=== PATIENT | male | born 1960 | race Caucasian/White ===

== ENCOUNTER 2019-05-28 13:40 | Inpatient (IN) | payer MEDICAID ==
[~2019-05-28] VITALS: Ht 165.1 cm; Wt 68.0 kg
[2019-05-28 13:46] VITALS: BP 175/79
--- NOTE | 2019-05-28 13:55 | NUR ---
PT AMB TO ER BED 5
--- NOTE | 2019-05-28 14:15 | NUR ---
C/O ABD DISTENTION, PENILE AND TESTICULAR SWELLING X 1 MONTH W/ +BLE SWELLING-PITTING EDEMA 2+. BOWEL SOUNDS HYPOACTIVE IN QUADRANTS, LARGE AND ROUND ABDOMEN. PATIENT DENIES ANY PAIN WITH USING BATHROOM, NO N/V/D. PATIENT STATES HE WAS SEEN AT [facility] X 1 MONTH AGO FOR HEART ATTACK AND PULMONARY EDEMA. PATIENT DENIES ANY STENT PLACEMENT. PATIENT DENIES ANY CP, NO SOB, NO DIAPHORESIS OR DIZZINESS. BP 166/91 AT THIS TIME. AA0X4. BED IS DOWN, LOCKED,BED RAIL X 1, ERMD TO SEE PT. Addendum: 05/28/19 at 1734 by [email or web address] 3+ EDEMA
--- NOTE | 2019-05-28 14:20 | NUR ---
LABS DRAWN BEDSIDE
--- NOTE | 2019-05-28 15:30 | NUR ---
DR DEWITT AT BEDSIDE
[2019-05-28] MEDS ORDERED: SODIUM CHLORIDE FLUSH 10 ML SYR IVF STA (15:57)
[2019-05-28] MEDS ORDERED: FUROSEMIDE 40 MG/4 ML VIAL IVP ONE (16:00)
--- NOTE | 2019-05-28 16:39 | NUR ---
PT SLEEPING IN BED. RR EVEN AND UNLABORED
[2019-05-28 16:42] LABS: BASOPHILS % (AUTO) 0.4 % (0.0-2.0); EOSINOPHILS # (AUTO) 0.3 K/uL (0-0.4); EOSINOPHILS % (AUTO) 4.9 % (0.0-4.0); HEMATOCRIT 30.5 % (36-52); HEMOGLOBIN 10.5 g/dL (12.0-18.0); LYMPHOCYTES % (AUTO) 16.7 % (20.5-51.1); MEAN CORPUSCULAR HEMOGLOBIN 32 pg (27-31); MEAN CORPUSCULAR HGB CONC 34 g/dL (33-37); MEAN CORPUSCULAR VOLUME 92.9 fL (80-94); MONOCYTES # (AUTO) 0.4 K/uL (0.8-1.0); NEUTROPHILS # (AUTO) 4.4 K/uL (1.8-7.7); PLATELET COUNT (AUTO) 257 K/uL (140-450); RED BLOOD CELL COUNT(AUTO) 3.28 MIL/uL (4.20-6.10); RED CELL DISTRIBUTION WIDTH 15.9 % (11.6-13.7); WHITE BLOOD COUNT (AUTO) 6.2 K/uL (4.8-10.8)
[2019-05-28 16:57] LABS: ALBUMIN 2.3 g/dL (3.4-5.0); ANION GAP 13.8 (8-16); CARBON DIOXIDE 27.8 mmol/L (21-32); CREATININE 1.4 mg/dL (0.7-1.3); TOTAL BILIRUBIN 0.4 mg/dL (0.0-1.0)
[2019-05-28 16:58] LABS: POTASSIUM 2.6 mmol/L (3.5-5.1)
[2019-05-28] MEDS ORDERED: POTASSIUM CHLORIDE 10 MEQ TABER PO ONE (17:05)
[2019-05-28] MEDS ORDERED: KCL 20 MEQ/WATER INJ PREMIX 100 ML IV ONE (17:05)
[2019-05-28] MEDS ORDERED: FURO-570 PO (17:09)
[2019-05-28] MEDS ORDERED: AMLO10TA PO (17:09)
[2019-05-28] MEDS ORDERED: OMEP20TC12 PO (17:09)
[2019-05-28] MEDS ORDERED: ATOR40TA PO (17:09)
[2019-05-28] MEDS ORDERED: ASPI-1677 PO (17:09)
[2019-05-28] MEDS ORDERED: LISI10TA11 PO (17:09)
[2019-05-28] MEDS ORDERED: NACL 0.9% 1,000 ML IV SCH (17:23)
[2019-05-28] MEDS ORDERED: ONDANSETRON 4 MG/2 ML VIAL IM/IVP PRN (17:25)
[2019-05-28] MEDS ORDERED: DOCUSATE SODIUM 100 MG GELCAP PO PRN (17:25)
[2019-05-28] MEDS ORDERED: MAG SULF 2000 MG/WATER PREMIX 50 ML IV ONE (17:40)
--- NOTE | 2019-05-28 17:55 | NUR ---
RECEIVED PT FROM ED NURSE MO. PT IS AWAKE AND ALERT, NO S/S OF ACUTE DISTRESS OR SOB. NO C/O CHEST PAIN REPORTED. PT IS AMBULATORY AND ABLE TO MAKE NEEDS KNOWN. IV CURRENTLY INFUSING K RIDER AT 40 ML/HR. IV SITE IS IN THE L AC 20 G. SKIN IS INTACT, ALTHOUGH OLD SMALL SCABS ARE NOTED ON BOTH LE'S. TELEMETRY APPLIED. CALL LIGHT GIVEN WITHIN REACH. PT IS REQUESTING TO TAKE A SHOWER.
--- NOTE | 2019-05-28 18:00 | NUR ---
VS UPON ADMISSION: BP 180/83, HR 62, O2 95, TEMP 97.3, RR 20
--- NOTE | 2019-05-28 18:10 | NUR ---
PT TAKING A SHOWER
[2019-05-28 18:15] LABS: PROTHROMBIN TIME 9.6 secs (10.8-13.4)
[2019-05-28 18:20] LABS: APPEARANCE,URINE CLOUDY (CLEAR); COLOR,URINE YELLOW (YELLOW)
[2019-05-28 18:21] LABS: PH,URINE 6.5 (5.0-9.0)
[2019-05-28 18:22] LABS: BLOOD, URINE 3+ (NEGATIVE); UGLUCOSE NEGATIVE (NEGATIVE)
[2019-05-28 18:23] LABS: BARBITURATE, URINE NEG. ng/ml (NEG <=200); BENZODIAZEPINE, URINE NEG. ng/mL (NEG <=200); BILIRUBIN,URINE 1+ (NEGATIVE); CANNABINOID, URINE NEG. ng/mL (NEG <=50); COCAINE, URINE NEG. ng/mL (NEG <=300); LEUKOCYTE ESTERASE ,URINE NEGATIVE (NEGATIVE); NITRITE, URINE NEGATIVE (NEGATIVE); OPIATE, URINE NEG. ng/mL (NEG <=2000); PHENCYCLIDINE SCREEN,URINE NEG. ng/mL (NEG <=25)
[2019-05-28 18:27] LABS: PHOSPHORUS 4.4 mg/dL (2.5-4.9); THYROID STIMULATING HORMONE 3.04 uIU/mL (0.34-3.74)
[2019-05-28 18:40] LABS: RBC,URINE 80-100 /HPF (0-5)
[2019-05-28 18:41] LABS: WBC,URINE NONE SEEN /HPF (0-5)
--- NOTE | 2019-05-28 18:46 | NUR ---
DR KNOX NOTIFIED OF PT'S BP 180/83
--- NOTE | 2019-05-28 19:20 | NUR ---
PT ENDORSED TO HEALTH SCREENER NURSE IN STABLE CONDITION
--- NOTE | 2019-05-28 19:26 | NUR ---
Patient will be admitted to care of CHAPMAN. Admited to TELE. Will go to room 111B. Belongings list completed. Report to DARRIAN HUTCHISON. ESTELLA RUNNING UPON ADMIT
[2019-05-28 19:30] VITALS: BP 147/87
--- NOTE | 2019-05-28 19:30 | NUR ---
RECEIVED TELE PT FROM DAY NURSE. PT IS AWAKE AND ALERT, NO S/S OF ACUTE DISTRESS OR SOB. NO C/O CHEST PAIN REPORTED. BUT PT IS COMPLAINING OF ABDOMINAL PAIN. BOWEL SOUNDS ARE PRESENT AND ACTIVE. PT IS AMBULATORY AND ABLE TO MAKE NEEDS KNOWN. IV SITE IS IN THE L AC 20 G. K RIDER STILL RUNNING AT 40ML/HR. SKIN IS INTACT WITH OLD SCABS ON BOTH LOWER LEGS. SLIGHT SWELLING ON LOWER LEGS. URINAL AT BEDSIDE. CALL LIGHT WITHIN REACH. BED ON LOW POSITION. WILL CONTINUE TO MONITOR FOR CHANGES IN CONDITION.
--- NOTE | 2019-05-28 21:30 | NUR ---
PATIENT IS AWAKE, ALERT AND ORIENTED X3, REQUESTED JUICE AND MILK, BED ON LOW POSITION, URINAL AT BEDSIDE, CALL LIGHT WITHIN REACH, WILL CONTINUE TO MONITOR.
[2019-05-28 22:12] LABS: ANION GAP 11.5 (8-16); CARBON DIOXIDE 28.8 mmol/L (21-32); CREATININE 1.3 mg/dL (0.7-1.3); POTASSIUM 3.3 mmol/L (3.5-5.1)
[2019-05-28] MEDS: ACETAMINOPHEN 325 MG TAB PO PRN (22:45)
[2019-05-29] VITALS (8 sets, daily range): BP systolic 148–188; BP diastolic 78–99
--- NOTE | 2019-05-29 00:54 | NUR ---
HYDRALAZINE 10 MG IV PUSH GIVEN ORDERED FOR BP 188/87. WILL REASSESS BP IN AN HOUR.
[2019-05-29] MEDS ORDERED: hydrALAZINE 20 MG/ML VIAL IVP SCH ×2 (01:00→09:00)
--- NOTE | 2019-05-29 01:54 | NUR ---
REASSESSED PATIENTS BP PER AFTER GIVING HYDRALAZINE, BP WENT DOWN FROM 188/89 TO 165/80 AND HR 66, WILL CONTINUE TO MONITOR.
--- NOTE | 2019-05-29 03:00 | NUR ---
PT PT IS ASLEEP. NO S/S OF ANY DISCOMFORT NOTED.
--- NOTE | 2019-05-29 04:15 | NUR ---
PATIENT REQUESTED SOME COFFEE AFTER VITAL SIGNS WERE TAKEN, ABLE TO VERBALIZE NEEDS, NO SIGNS OF DISTRESS NOTED, WILL CONTINUE TO MONITOR.
[2019-05-29] MEDS ORDERED: METOPROLOL 25 MG TAB PO SCH ×3 (05:00→21:00)
--- NOTE | 2019-05-29 05:04 | NUR ---
BLOOD PRESSURE 184/99 . LOPRESSOR 25 MG PO GIVEN ORDERED. WILL CONTINUE TO MONITOR.
--- NOTE | 2019-05-29 06:00 | NUR ---
PT OWN MEDICATIONS SEND TO PHARMACY FOR NO FAMILY AND NO PLACE TO BRING HOME. PT IS HOMELESS . PLACED IN INDICATED BAG. PT AWARE ABOUT THIS PROCEDURE.
[2019-05-29] MEDS: PANTOPRAZOLE 40 MG TABEC PO SCH (06:15)
--- NOTE | 2019-05-29 06:29 | NUR ---
BLOOD PRESSURE STILL ELEVATED 180/85 AFTER THE LOPRESSOR 25 MG PO GIVEN EARLIER. DR. RENEE MADE AWARE. SHE SAID TO GIVE BOTH NORVASC AND LISINOPRIL DOSE FOR AM NOW.
[2019-05-29] MEDS: amLODIPine 5 MG TAB PO SCH (06:34)
[2019-05-29 06:47] LABS: CHOL/HDL RATIO 8.3 (1-4.5)
--- NOTE | 2019-05-29 07:22 | NUR ---
ENDORSED PATIENT TO DAY NURSE FOR CONTINUITY OF CARE. PATIENT IS IN STABLE CONDITION.
--- NOTE | 2019-05-29 07:24 | NUR ---
RECEIVED BEDSIDE REPORT FROM REGISTRATION COORDINATOR NURSE FOR CONTINUITY OF CARE. PATIENT IS RESTING ON BED AT THIS TIME. AROUSABLE TO VOICE. PATIENT IS AAOX4. EVEN AND UNLABORED CHEST RISES ON RA NOTED. DENIED PAIN AND SOB. NO SIGNS OF DISTRESS NOTED. IV ON LAC 20G, CLEAN AND INTACT, SL. SKIN CLEAN AND DRY, SCABS ON BILATERAL LOWER LEGS NOTED. BLE EXTREMITY WITH 2+ PITTING EDEMA. PATIENT IS ABLE TO AMBULATE WITH STEADY GAIT. DISCUSSED PLAN OF CARE WITH PATIENT AND PATIENT VERBALIZED OK. TELE MONITOR ATTACHED. BED IN LOW POSITION AND CALL LIGHT WITHIN REACH. INSTRUCTED PATIENT TO USE THE CALL LIGHT FOR ANY ASSISTANCE AND PATIENT VERBALIZED OK.
--- NOTE | 2019-05-29 07:45 | NUR ---
SWISS TYPE SCREW MACHINE OPERATOR IS BY BEDSIDE DOING ABDOMINAL ULTRASOUND. NO SIGNS OF DISTRESS NOTED. TELE MONITOR ATTACHED.
--- NOTE | 2019-05-29 08:20 | NUR ---
CHECKED VITAL SIGNS AND BP 182/97 PULSE 66, NOTIFIED DR RENEE AND PER DR RENEE, ADMINISTER THE SCHEDULED DOSE FUROSEMIDE AND SHE WILL INPUT NEW ORDER.
[2019-05-29] MEDS: ECOTRIN 81 MG TABEC PO SCH (08:29)
[2019-05-29] MEDS ORDERED: LISINOPRIL 10 MG TAB PO SCH ×2 (08:33→09:00)
--- NOTE | 2019-05-29 08:34 | NUR ---
ADMINISTERED MEDS PER MD ORDER, PATIENT TOLERATED WELL. MEDS EDUCATION PROVIDED TO PATIENT AND PATIENT VERBALIZED UNDERSTANDING. INSTRUCTED PATIENT TO CHANGE POSITION SLOWLY AND TO BE CAREFUL WHEN GET OUT OF BED , PATIENT SAID OK. PATIENT DENIED PAIN AND SOB. PATIENT IS RESTING ON BED AT THIS TIME. NO SIGNS OF DISTRESS NOTED. TELE MONITOR ATTACHED. SAFETY MEASURES IN PLACE. BED IN LOW POSITION AND ALL LIGHT WITHIN REACH. INSTRUCTED PATIENT TO USE THE CALL LIGHT FOR ANY ASSISTANCE AND PATIENT WAS AWARE.
--- NOTE | 2019-05-29 08:43 | NUR ---
PATIENT HAS BEEN SCREENED AND CATEGORIZED MODERATE NUTRITION RISK. PATIENT WILL BE SEEN WITHIN 3-5 DAYS OF ADMISSION. 05/31/19 06/02/[address]
--- NOTE | 2019-05-29 08:46 | NUR ---
DR ARMSTRONG AND DR RENEE ARE TALKING TO PATIENT BY BEDSIDE. NO SIGNS OF DISTRESS NOTED. TELE MONITOR ATTACHED. SAFETY MEASURES IN PLACE.
--- NOTE | 2019-05-29 08:58 | NUR ---
PER DR RENEE, ADMINISTER THE LISINOPRIL WELL AND REASSESS BP AROUND 0930. ADMINISTERED MED PER MD ORDER, PATIENT TOLERATED WELL. MED EDUCATION PROVIDED TO PATIENT AND PATIENT SAID OK. PATIENT IS RESTING ON BED AT THIS TIME. DENIED PAIN AND SOB. NO SIGNS OF DISTRESS NOTED. TELE MONITOR ATTACHED. SAFETY MEASURES IN PLACE. BED IN LOW POSITION AND CALL LIGHT WITHIN REACH. INSTRUCTED PATIENT TO USE THE CALL LIGHT FOR ANY ASSISTANCE AND PATIENT WAS AWARE.
[2019-05-29] MEDS ORDERED: FUROSEMIDE 40 MG TAB PO SCH (09:00)
[2019-05-29 09:29] LABS: BASOPHILS % (AUTO) 0.7 % (0.0-2.0); EOSINOPHILS # (AUTO) 0.5 K/uL (0-0.4); EOSINOPHILS % (AUTO) 8.3 % (0.0-4.0); HEMATOCRIT 29.2 % (36-52); HEMOGLOBIN 9.8 g/dL (12.0-18.0); LYMPHOCYTES # (AUTO) 1.3 K/uL (2.0-11.5); LYMPHOCYTES % (AUTO) 23.5 % (20.5-51.1); MEAN CORPUSCULAR HEMOGLOBIN 31 pg (27-31); MEAN CORPUSCULAR HGB CONC 34 g/dL (33-37); MEAN CORPUSCULAR VOLUME 93.2 fL (80-94); MONOCYTES # (AUTO) 0.4 K/uL (0.8-1.0); MONOCYTES % (AUTO) 6.6 % (1.7-9.3); NEUTROPHILS # (AUTO) 3.4 K/uL (1.8-7.7); NEUTROPHILS % (AUTO) 60.9 % (42.2-75.2); PLATELET COUNT (AUTO) 169 K/uL (140-450); RED BLOOD CELL COUNT(AUTO) 3.13 MIL/uL (4.20-6.10); WHITE BLOOD COUNT (AUTO) 5.6 K/uL (4.8-10.8)
--- NOTE | 2019-05-29 09:35 | NUR ---
REASSESSED PATIENT'S BP AND RECEIVED 152/70 PULSE 63. PATIENT DENIED PAIN AND DIZZINESS. PATIENT IS RESTING ON BED AT THIS TIME. NO SIGNS OF DISTRESS NOTED. TELE MONITOR ATTACHED. SAFETY MEASURES IN PLACE. BE IN LOW POSITION AND CALL LIGHT WITHIN REACH. INSTRUCTED PATIENT TO USE THE CALL LIGHT FOR ANY ASSISTANCE AND PATIENT WAS AWARE.
[2019-05-29 10:03] LABS: CREATININE 1.3 mg/dL (0.7-1.3)
[2019-05-29 10:07] LABS: MAGNESIUM 1.9 mg/dL (1.8-2.4); PHOSPHORUS 4.5 mg/dL (2.5-4.9)
--- NOTE | 2019-05-29 10:20 | NUR ---
PATIENT HAS ONE SMALL SOLID BM, BROWN. COLLECTED STOOL OCCULT BLOOD AND DELIVERED TO LAB. PATIENT IS RESTING ON BED AT THIS TIME. NO SIGNS OF DISTRESS NOTED. TELE MONITOR ATTACHED. BED IN LOW POSITION AND CALL LIGHT WITHIN REACH. INSTRUCTED PATIENT TO USE THE CALL LIGHT FOR ANY ASSISTANCE AND PATIENT SAID OK.
--- NOTE | 2019-05-29 10:50 | NUR ---
NOTIFIED DR RENEE AND DR WEIR THAT PATIENT'S POTASSIUM IS 3 FROM AM LAB. PER DR WEIR, THEY WILL PUT IN AN ORDER FOR IT.
--- NOTE | 2019-05-29 11:45 | NUR ---
PATIENT IS RESTING ON BED AT THIS TIME, AROUSABLE TO VOICE. EVEN AND UNLABORED CHEST RISES ON RA NOTED. FLACC 0. NO SIGNS OF DISTRESS NOTED. SAFETY MEASURES IN PLACE. BED IN LOW POSITION AND CALL LIGHT WITHIN REACH. TELE MONITOR ATTACHED.
--- NOTE | 2019-05-29 13:29 | NUR ---
PATIENT AWAKE AND IN ECHOCARDIOGRAM. ENVIRONMENTAL MONITORING SPECIALIST BY BEDSIDE. NO SIGNS OF DISTRESS NOTED. TELE MONITOR ATTACHED. SAFETY MEASURES IN PLACE. BED IN LOW POSITION AND CALL LIGHT WITHIN REACH.
[2019-05-29] MEDS ORDERED: MAGNESIUM OXIDE 400 MG TAB PO SCH (15:00)
[2019-05-29] MEDS ORDERED: POTASSIUM CHLORIDE 40 MEQ, LIDOCAINE MPF 1% - 5 mL VIAL 25 MG in NACL 0.9% 250 ML IV SCH (15:00)
--- NOTE | 2019-05-29 15:02 | NUR ---
ADMINISTERED MEDS PER MD ORDER, MEDS EDUCATION PROVIDED TO PATIENT AND PATIENT VERBALIZED UNDERSTANDING. PATIENT IS RESTING ON BED AT THIS TIME. NO SIGNS OF DISTRESS NOTED. SAFETY MEASURES IN PLACE. BED IN LOW POSITION AND CALL LIGHT WITHIN REACH. INSTRUCTED PATIENT TO USE THE CALL LIGHT FOR ANY ASSISTANCE AND PATIENT WAS AWARE.
[2019-05-29] MEDS: ACETAMINOPHEN 325 MG TAB PO PRN (15:24)
--- NOTE | 2019-05-29 15:24 | NUR ---
PATIENT COMPLAINED HE HAS 2/10 HEADACHE, ADMINISTERED ACETAMINOPHEN PER MD ORDER, PATIENT TOLERATED WELL. PATIENT SAID " I WANT TO TAKE A NAP NOW." TELE MONITOR ATTACHED. SAFETY MEASURES IN PLACE. BED IN LOW POSITION AND CALL LIGHT WITHIN REACH. INSTRUCTED PATIENT TO USE THE CALL LIGHT FOR ANY ASSISTANCE AND PATIENT SAID OK.
[2019-05-29] MEDS: hydrALAZINE 20 MG/ML VIAL IVP PRN (16:13)
--- NOTE | 2019-05-29 16:13 | NUR ---
CHECKED VITAL SIGNS AND BP WAS 179/87 PULSE 70, ADMINISTERED PRN HYDRALAZINE PER MD ORDER FOR BP SYSTOLIC OVER 160, PATIENT TOLERATED WELL . MED EDUCATION PROVIDED TO PATIENT AND PATIENT SAID OK. PATIENT IS RESTING ON BED. DENIED PAIN, DIZZINESS AND SOB. NO SIGNS OF DISTRESS NOTED. TELE MONITOR ATTACHED. SAFETY MEASURES IN PLACE. BED IN LOW POSITION AND CALL LIGHT WITHIN REACH. INSTRUCTED PATIENT TO USE THE CALL LIGHT FOR ANY ASSISTANCE AND PATIENT WAS AWARE.
[2019-05-29] MEDS ORDERED: APAP/BUTAL/CAFF 325/50/40 MG 1 TAB PO PRN (16:40)
--- NOTE | 2019-05-29 17:17 | NUR ---
PATIENT COMPLAINED THAT HE HAS BAD HEADACHE. PER DR RENEE, ADMINISTERED FLORICET. ADMINISTERED MED PER MD ORDER, PATIENT TOLERATED WELL. MED EDUCATION PROVIDED TO PATIENT AND PATIENT VERBALIZED OK. PATIENT IS RESTING ON BED AT THIS TIME. TELE MONITOR ATTACHED. SAFETY MEASURES IN PLACE. BED IN LOW POSITION AND CALL LIGHT WITHIN REACH. INSTRUCTED PATIENT TO USE THE CALL LIGHT FOR ANY ASSISTANCE AND PATIENT WAS AWARE.
--- NOTE | 2019-05-29 18:35 | NUR ---
EXPLAINED TO PATIENT THAT HE HAS ABDOMINAL US TOMORROW AND HE HAS TO BE NPO FOR 6 HOURS. PATIENT WAS AWARE AND VERBALIZED OK. NPO SIGN POSTED. PATIENT IS RESTING ON BED. NO SIGNS OF DISTRESS NOTED. SAFETY MEASURES IN PLACE. BED IN LOW POSITION AND CALL LIGHT WITHIN REACH. TELE MONITOR ATTACHED. INSTRUCTED PATIENT TO USE THE CALL LIGHT FOR ANY ASSISTANCE AND PATIENT VERBALIZED UNDERSTANDING.
--- NOTE | 2019-05-29 19:30 | NUR ---
ENDORSED PATIENT AT BEDSIDE TO RADIO TELEVISION ANNOUNCER NURSE FOR CONTINUITY OF CARE. PATIENT IS RESTING ON BED. EVEN AND UNLABORED CHEST RISES ON RA NOTED. NO SIGNS OF DISTRESS NOTED. PATIENT IS IN STABLE CONDITION. TELE MONITOR ATTACHED. SAFETY MEASURES IN PLACE. BED IN LOW POSITION AND CALL LIGHT WITHIN REACH.
--- NOTE | 2019-05-29 19:32 | NUR ---
RECEIVED PT IN STABLE CONDITION FROM AM NURSE. AWAKE,ALERT AND ORIENTED X4. ON TELE MONITOR -SR. WITH NO ACUTE DISTRESS NOTED. WITH OCCASIONAL NON PRODUCTIVE COUGH. IV ACCESS ON LT AC G#20 ,CLEAR AND PATENT. SKIN HAS SOME OLD SCABS WHICH PT SAID FROM SCRATCHING. ABDOMEN DISTENDED, TENDER. NO CO ANY PAIN NOTED AT THIS TIME. BED ON LOEST POSITION. FREQ ROUNDS NEEDED. SIDE RAILS UP X2. CALL LIGHT AND URINAL PLACED WITHIN EASY REACH. WILL CONTINUE TO MONITOR.
[2019-05-29] MEDS: FUROSEMIDE 40 MG/4 ML VIAL IVP SCH (20:17)
[2019-05-29] MEDS: ATORVASTATIN 20 MG TAB PO SCH (20:17)
[2019-05-29] MEDS: METOPROLOL 25 MG TAB PO SCH (20:18)
[2019-05-29] MEDS ORDERED: FUROSEMIDE 20 MG/2 ML VIAL IVP SCH (21:00)
[2019-05-29] MEDS ORDERED: LISINOPRIL 20 MG TAB PO SCH (21:00)
[2019-05-29] MEDS ORDERED: hydrALAZINE 25 MG TAB PO SCH (21:00)
--- NOTE | 2019-05-29 21:00 | NUR ---
ABLE TO TOLERATE ALL HS DUE MEDS. BP 156/88. NO C/O ANY PAIN AT THIS TIME.
--- NOTE | 2019-05-29 23:00 | NUR ---
MADE ROUNDS. PT ASLEEP.. NO S/S OF ANT DISCOMFORT NOTED.
[2019-05-30] VITALS (9 sets, daily range): BP systolic 150–180; BP diastolic 75–98
[2019-05-30] MEDS: ACETAMINOPHEN 325 MG TAB PO PRN ×4 (00:18→21:03)
[2019-05-30] MEDS: hydrALAZINE 20 MG/ML VIAL IVP PRN (00:19)
--- NOTE | 2019-05-30 00:19 | NUR ---
BLOOD PRESSURE ELEVATED 179/98, HR-74 APRESOLINE 10 MG IVP GIVEN ORDERED. ALSO PT C/O H/A AMD REQUESTED FOR TYLENOL. WILL CONTINUE TO MONITOR,REASSESS BP AFTER AN HOUR.
--- NOTE | 2019-05-30 01:19 | NUR ---
AT THIS TIME NO MORE C/O H/A AND BP RECHECKED 158/82, HR-74. WILL CONTINUE TO MONITOR.
--- NOTE | 2019-05-30 03:00 | NUR ---
MADE ROUNDS. PT ASLEEP. NO S/S OF ANY DISTRESS NOTED.
[2019-05-30] MEDS ORDERED: hydrALAZINE 20 MG/ML VIAL IVP ONE (04:40)
--- NOTE | 2019-05-30 04:50 | NUR ---
BP ELEVATED AGAIN . DR. KUMAR MADE AWARE FOR THE APRESOLINE 10 MG IVP PRN NOT DUE YET. ORDERED FOR X1 . GIVEN. WILL REASSESS AFTER AN HOUR. . Addendum: 05/30/19 at 0502 by Katie Ayala RN BP ABOVE 180/92, HR-71
--- NOTE | 2019-05-30 05:50 | NUR ---
LATEST BP TAKEN AT THIS TIME 164/86, HR-83. NO C/O PAIN NOTED .
[2019-05-30] MEDS: PANTOPRAZOLE 40 MG TABEC PO SCH (06:30)
--- NOTE | 2019-05-30 06:30 | NUR ---
KEPT PT NPO FOR US ABDOMEN.
[2019-05-30 06:46] LABS: BASOPHILS # (AUTO) 0.1 K/uL (0.00-0.22); BASOPHILS % (AUTO) 0.8 % (0.0-2.0); EOSINOPHILS # (AUTO) 0.5 K/uL (0-0.4); EOSINOPHILS % (AUTO) 7.7 % (0.0-4.0); HEMATOCRIT 29.3 % (36-52); HEMOGLOBIN 9.8 g/dL (12.0-18.0); LYMPHOCYTES # (AUTO) 1.9 K/uL (2.0-11.5); LYMPHOCYTES % (AUTO) 29.5 % (20.5-51.1); MEAN CORPUSCULAR HEMOGLOBIN 31 pg (27-31); MEAN CORPUSCULAR HGB CONC 33 g/dL (33-37); MEAN CORPUSCULAR VOLUME 94.2 fL (80-94); MONOCYTES # (AUTO) 0.5 K/uL (0.8-1.0); MONOCYTES % (AUTO) 7.9 % (1.7-9.3); NEUTROPHILS # (AUTO) 3.5 K/uL (1.8-7.7); NEUTROPHILS % (AUTO) 54.1 % (42.2-75.2); PLATELET COUNT (AUTO) 220 K/uL (140-450); RED BLOOD CELL COUNT(AUTO) 3.12 MIL/uL (4.20-6.10); WHITE BLOOD COUNT (AUTO) 6.5 K/uL (4.8-10.8)
[2019-05-30 07:12] LABS: CARBON DIOXIDE 24.4 mmol/L (21-32); CREATININE 1.4 mg/dL (0.7-1.3); POTASSIUM 3.4 mmol/L (3.5-5.1)
[2019-05-30 07:19] LABS: MAGNESIUM 1.9 mg/dL (1.8-2.4); PHOSPHORUS 4.4 mg/dL (2.5-4.9)
--- NOTE | 2019-05-30 07:20 | NUR ---
ENDORSED PT TO AM NURSE IN STABLE CONDITION.
--- NOTE | 2019-05-30 07:22 | NUR ---
RECEIVED BEDSIDE REPORT FROM ASSEMBLER WIRE MESH GATE NURSE FOR CONTINUITY OF CARE. PATIENT AWAKE AND RESTING ON BED AT THIS TIME. PATIENT IS AAOX4. RESPIRATION EVEN AND UNLABORED ON RA. DENIED PAIN, DIZZINESS AND SOB AT THIS TIME. NO SIGNS OF DISTRESS NOTED. IV ON LAC 20G, CLEAN AND INTACT, SL.SCABS ON BILATERAL LOWER LEGS, OTHERWISE SKIN CLEAN AND DRY. PATIENT IS ABLE TO AMBULATE AND CONTINENT. DISCUSSED PLAN OF CARE WITH PATIENT AND PATIENT SAID OK. TELE MONITOR ATTACHED. SAFETY MEASURES IN PLACE. BED IN LOW POSITION AND CALL LIGHT WITHIN REACH. INSTRUCTED PATIENT TO USE THE CALL LIGHT FOR ANY ASSISTANCE AND PATIENT VERBALIZED UNDERSTANDING.
--- NOTE | 2019-05-30 07:56 | NUR ---
DR ARMSTRONG IS TALKING TO PATIENT AT BEDSIDE. NO SIGNS OF DISTRESS NOTED. TELE MONITOR IN PLACE. SAFETY MEASURES IN PLACE.
[2019-05-30] MEDS ORDERED: LISINOPRIL 10 MG TAB PO SCH (09:00)
[2019-05-30] MEDS ORDERED: LISINOPRIL 20 MG TAB PO SCH (09:12)
[2019-05-30] MEDS: ECOTRIN 81 MG TABEC PO SCH (09:50)
[2019-05-30] MEDS: POTASSIUM CHLORIDE 10 MEQ TABER PO SCH (09:50)
[2019-05-30] MEDS: METOPROLOL 25 MG TAB PO SCH ×2 (09:50→20:53)
[2019-05-30] MEDS: amLODIPine 5 MG TAB PO SCH (09:51)
[2019-05-30] MEDS: FUROSEMIDE 40 MG/4 ML VIAL IVP SCH ×2 (09:51→20:51)
--- NOTE | 2019-05-30 09:51 | NUR ---
ADMINISTERED MEDS PER MD ORDER, PATIENT TOLERATED WELL. MEDS EDUCATION PROVIDED TO PATIENT AT BEDSIDE AND ANSWERED ALL PATIENT'S QUESTIONS, PATIENT VERBALIZED UNDERSTANDING. PATIENT IS RESTING ON BED AT THIS TIME. TELE MONITOR ATTACHED. DENIED PAIN, DIZZINESS AND SOB. NO SIGNS OF DISTRESS NOTED. SAFETY MEASURES IN PLACE. BED IN LOW POSITION AND CALL LIGHT WITHIN REACH. INSTRUCTED PATIENT TO USE THE CALL LIGHT FOR ANY ASSISTANCE AND PATIENT WAS AWARE.
[2019-05-30] MEDS ORDERED: POTASSIUM CHLORIDE 10 MEQ TABER PO SCH (11:30)
[2019-05-30] MEDS: LACTULOSE 20 GM/30 ML UDC PO SCH ×2 (11:33→20:52)
--- NOTE | 2019-05-30 11:33 | NUR ---
ADMINISTERED MEDS PER MD ORDER, PATIENT TOLERATED WELL. MEDS EDUCATION PROVIDED TO PATIENT AND PATIENT VERBALIZED UNDERSTANDING. PATIENT IS RESTING ON BED WITH HOB ELEVATED 30 DEGREE. PATIENT DENIED PAIN, DIZZINESS AND SOB. NO SIGNS OF DISTRESS NOTED. TELE MONITOR ATTACHED. SAFETY MEASURES IN PLACE. BED IN LOW POSITION AND CALL LIGHT WITHIN REACH. INSTRUCTED PATIENT TO USE THE CALL LIGHT FOR ANY ASSISTANCE AND PATIENT SAID OK.
[2019-05-30 12:16] LABS: FOLIC ACID 8.8 ng/mL (>3.0)
[2019-05-30] MEDS: hydrALAZINE 25 MG TAB PO SCH ×2 (13:18→16:38)
--- NOTE | 2019-05-30 13:18 | NUR ---
ADMINISTERED MED PER MD ORDER, PATIENT TOLERATED WELL. MED EDUCATION PROVIDED TO PATIENT AND PATIENT VERBALIZED UNDERSTANDING. PATIENT IS RESTING ON BED WITH HOB ELEVATED 30 DEGREE. DENIED PAIN, SOB AND DIZZINESS. NO SIGNS OF DISTRESS NOTED. TELE MONITOR ATTACHED. SAFETY MEASURES IN PLACE. BED IN LOW POSITION AND CALL LIGHT WITHIN REACH. INSTRUCTED PATIENT TO USE THE CALL LIGHT FOR ANY ASSISTANCE AND PATIENT WAS AWARE.
--- NOTE | 2019-05-30 15:20 | NUR ---
PATIENT IS RESTING ON BED COMFORTABLY. AROUSABLE TO VOICE. DENIED PAIN, DIZZINESS, AND SOB. NO SIGNS OF DISTRESS NOTED. TELE MONITOR ATTACHED. SAFETY MEASURES IN PLACE. BED IN LOW POSITION AND CALL LIGHT WITHIN REACH. INSTRUCTED PATIENT TO USE THE CALL LIGHT FOR ANY ASSISTANCE AND PATIENT SAID OK.
--- NOTE | 2019-05-30 16:38 | NUR ---
CHECKED PT'S BP AND RECEIVED 170/95 PULSE 68, ADMINISTERED SCHEDULED HYDRALAZINE 25MG PER MD ORDER, PATIENT TOLERATED WELL. PATIENT IS RESTING ON BED AT THIS TIME. DENIED PAIN, DIZZINESS, AND SOB. NO SIGNS OF DISTRESS NOTED. TELE MONITOR ATTACHED. WILL RECHECK BP AGAIN IN AN HOUR. SAFETY MEASURES IN PLACE. BED IN LOW POSITION AND CALL LIGHT WITHIN REACH. INSTRUCTED PATIENT TO USE THE CALL LIGHT FOR ANY ASSISTANCE AND PATIENT WAS AWARE.
--- NOTE | 2019-05-30 17:50 | NUR ---
REASSESSED BP AND RECEIVED 152/75 PULSE 73, PATIENT IS RESTING ON BED AT THIS TIME. DENIED PAIN, SOB, AND DIZZINESS. NO SIGNS OF DISTRESS NOTED. TELE MONITOR ATTACHED. SAFETY MEASURES IN PLACE. BED IN LOW POSITION AND CALL LIGHT WITHIN REACH. INSTRUCTED PATIENT TO USE THE CALL LIGHT FOR ANY ASSISTANCE AND PATIENT VERBALIZED UNDERSTANDING.
--- NOTE | 2019-05-30 19:29 | NUR ---
ENDORSED PATIENT AT BEDSIDE TO STOPPING BUILDER NURSE FOR CONTINUITY OF CARE. PATIENT IS AWAKE AND RESTING ON BED. EVEN AND UNLABORED CHEST RISES ON RA NOTED. NO SIGNS OF DISTRESS NOTED. PATIENT IS IN STABLE CONDITION. TELE MONITOR ATTACHED. SAFETY MEASURES IN PLACE. BED IN LOW POSITION AND CALL LIGHT WITHIN REACH.
--- NOTE | 2019-05-30 19:29 | NUR ---
RECIEVED PT AAOX4 , NID , ON HEP LOCK -INTACT AND PATENT , ON SUPERVISOR PLATE FORMING , ON SAFETY / FALL PRECAUTION PROTOCOL - CALL LIGHT WITHIN REACH . PLAN OF CARE DISCUSSED AND VERBALIZE UNDERSTANDING DENIES ANY PAIN , WITH EDEMATOUS FACE , DISTENDED ABDOMEN - DENIES SOB - ON RA , WITH BILAT. PITTING EDEMA , WITH MILD DJV - C/O MELGAR BUT NOT TO SEVERE HE STATED. WILL CONT. TO MONITOR.
[2019-05-30] MEDS: ATORVASTATIN 20 MG TAB PO SCH (20:52)
--- NOTE | 2019-05-30 22:00 | NUR ---
MADE ROUNDS , NO SIGNS OF DISTRESS NOTED AT THIS TIME , WILL CONT. TO MONITOR , CALL LIGHT WITHIN REACH.
[2019-05-30] MEDS: risperiDONE 1 MG TAB PO SCH (22:25)
[2019-05-31] VITALS: BP 157/98
--- NOTE | 2019-05-31 | NUR ---
MADE ROUNDS , NO SIGNS OF DISTRESS NOTED AT THIS TIME , WILL CONT TO MONITOR , CALL LIGHT WITHIN REACH
[2019-05-31 04:00] VITALS: BP 160/100
[2019-05-31 06:18] LABS: BASOPHILS % (AUTO) 0.6 % (0.0-2.0); EOSINOPHILS # (AUTO) 0.3 K/uL (0-0.4); EOSINOPHILS % (AUTO) 6.5 % (0.0-4.0); HEMATOCRIT 26.3 % (36-52); HEMOGLOBIN 8.7 g/dL (12.0-18.0); LYMPHOCYTES # (AUTO) 1.4 K/uL (2.0-11.5); LYMPHOCYTES % (AUTO) 28.3 % (20.5-51.1); MEAN CORPUSCULAR HEMOGLOBIN 32 pg (27-31); MEAN CORPUSCULAR HGB CONC 33 g/dL (33-37); MEAN CORPUSCULAR VOLUME 94.6 fL (80-94); MONOCYTES # (AUTO) 0.5 K/uL (0.8-1.0); MONOCYTES % (AUTO) 9.6 % (1.7-9.3); NEUTROPHILS # (AUTO) 2.7 K/uL (1.8-7.7); PLATELET COUNT (AUTO) 134 K/uL (140-450); RED BLOOD CELL COUNT(AUTO) 2.78 MIL/uL (4.20-6.10); RED CELL DISTRIBUTION WIDTH 16.4 % (11.6-13.7)
[2019-05-31] MEDS: PANTOPRAZOLE 40 MG TABEC PO SCH (06:30)
[2019-05-31 06:47] LABS: ANION GAP 12.5 (8-16); CARBON DIOXIDE 26.1 mmol/L (21-32); CREATININE 1.3 mg/dL (0.7-1.3); POTASSIUM 3.6 mmol/L (3.5-5.1)
[2019-05-31 06:54] LABS: MAGNESIUM 1.9 mg/dL (1.8-2.4); PHOSPHORUS 4.7 mg/dL (2.5-4.9)
--- NOTE | 2019-05-31 07:35 | NUR ---
ENDORSEDTO AM SHIFT WITH STABLE CONDITION.
--- NOTE | 2019-05-31 07:35 | NUR ---
Received report from pm nurse Kajal. Pt asleep in bed, respirations even & nonlabored in room air, arousable by auditory stimuli. No signs of distress. Call light within reach.
[2019-05-31 08:00] VITALS: BP 187/101
[2019-05-31] MEDS: amLODIPine 5 MG TAB PO SCH (08:22)
[2019-05-31] MEDS: METOPROLOL 25 MG TAB PO SCH ×2 (08:23→21:59)
[2019-05-31] MEDS: hydrALAZINE 25 MG TAB PO SCH ×3 (08:23→17:18)
[2019-05-31] MEDS: ECOTRIN 81 MG TABEC PO SCH (08:23)
[2019-05-31] MEDS: POTASSIUM CHLORIDE 10 MEQ TABER PO SCH (08:24)
[2019-05-31] MEDS: LISINOPRIL 20 MG TAB PO SCH (08:24)
[2019-05-31] MEDS: FUROSEMIDE 40 MG/4 ML VIAL IVP SCH ×2 (08:27→21:59)
--- NOTE | 2019-05-31 10:15 | NUR ---
Pt sitting up at edge of bed, watching TV. No c/o discomfort, no SOB. Call light within reach.
[2019-05-31 12:00] VITALS: BP 163/83
--- NOTE | 2019-05-31 12:30 | NUR ---
Dr. Trinidad at bedside to assess pt. Dr informed of BP trends above 150. Per , he will inform residents re: cardio recommendations. Pt currently resting in bed, no signs of distress, no c/o discomfort. Call light within reach.
[2019-05-31 16:00] VITALS: BP 169/100
--- NOTE | 2019-05-31 16:30 | NUR ---
risk tech at bedside stating pt is uncooperative & agitated despite pt education of procedure. Unable to start echo at this time. Dr. Burch notified & spoke with pt, but pt remains agitated, stating she hasn't eaten (pt was assisted for breakfast & lunch). Pt reoriented to present, offered snacks if hungry but pt refused. Pt denies any pain or discomfort. Per Dr Burch, she will order lorazepam x1. Bed alarm on. Call light within reach.
--- NOTE | 2019-05-31 17:10 | NUR ---
Lorazepam 0.5mg administered IVP. Pt able to calm down & agree with echocardiogram. machine tool technology instructor at bedside notified. Pt resting in bed, aaox2, no signs of distress. Bed alarm on. Call light within reach. Addendum: 05/31/19 at 1937 by Veronica Farr RN Charted on wrong pt. Pls omit above note.
[2019-05-31] MEDS ORDERED: POTASSIUM CHLORIDE 10 MEQ TABER PO ONE (18:30)
[2019-05-31] MEDS ORDERED: MAG SULF 2000 MG/WATER PREMIX 50 ML IV ONE (18:30)
--- NOTE | 2019-05-31 18:30 | NUR ---
Per Dr. Burch, cont to administer KCl tabs & Mag-rider per Dr Trinidad recommendation.
--- NOTE | 2019-05-31 19:25 | NUR ---
Report given to pm nurse Dali.
--- NOTE | 2019-05-31 19:26 | NUR ---
RECEIVED PT ON BED SUPINE, AWAKE, ALERT O X 4. PT W/ LEFT AC G 20, SL. PATIENT AMBULATORY, ON TELEMONITORING. NO SOB NO SIGNS OF RESPIRATORY DISTRESS, O COMPLAINTS AT THIS TIME. POC REVIEWED, PLACED ON LOW BED POSITION. CALL LIGHT W/IN REACH
[2019-05-31 20:00] VITALS: BP 162/73
--- NOTE | 2019-05-31 20:00 | NUR ---
BP HIGH AT 162/73 WILL RETAKE LATER; HR: 96
[2019-05-31] MEDS: ATORVASTATIN 20 MG TAB PO SCH (21:59)
[2019-05-31] MEDS: risperiDONE 1 MG TAB PO SCH (22:00)
[2019-05-31] MEDS: ACETAMINOPHEN 325 MG TAB PO PRN (22:08)
--- NOTE | 2019-05-31 22:09 | NUR ---
C/O PAIN ABDOMEN, TIGHTNESS AND DISCOMFORT MILD PAIN, GIVEN TYLENOL
--- NOTE | 2019-05-31 22:30 | NUR ---
RETOOK BP IS 156/90; HR 62; DR ERNANDEZ AWARE. NO NEW ORDERS
[2019-06-01] VITALS: BP 156/90
--- NOTE | 2019-06-01 02:15 | NUR ---
CHECKED ON PATIENT SLEEPING, NO COMPLAINTS AT THIS.FREQUENT ROUNDING DONE. WILL MONITOR PT
[2019-06-01 04:00] VITALS: BP 159/82
--- NOTE | 2019-06-01 04:00 | NUR ---
BP= 159/82 [facility] ; HR 63; DR. ERNANDEZ AWARE. NO NEW ORDERS
[2019-06-01] MEDS: PANTOPRAZOLE 40 MG TABEC PO SCH (06:05)
--- NOTE | 2019-06-01 06:23 | NUR ---
PT FOR BP MONITORING DUE CHF, NO RESPIRATORY DISTRESS, NOT IN PAIN AT THIS TIME. WILL ENDORSE TO NEXT SHIFT.
[2019-06-01 06:34] LABS: ANION GAP 12.1 (8-16); CARBON DIOXIDE 24.9 mmol/L (21-32); CREATININE 1.2 mg/dL (0.7-1.3)
[2019-06-01 06:40] LABS: MAGNESIUM 2.2 mg/dL (1.8-2.4); PHOSPHORUS 4.8 mg/dL (2.5-4.9)
[2019-06-01 06:46] LABS: BASOPHILS % (AUTO) 0.5 % (0.0-2.0); EOSINOPHILS # (AUTO) 0.4 K/uL (0-0.4); EOSINOPHILS % (AUTO) 8.5 % (0.0-4.0); HEMATOCRIT 26.7 % (36-52); LYMPHOCYTES # (AUTO) 1.2 K/uL (2.0-11.5); LYMPHOCYTES % (AUTO) 25.3 % (20.5-51.1); MEAN CORPUSCULAR HEMOGLOBIN 32 pg (27-31); MEAN CORPUSCULAR HGB CONC 34 g/dL (33-37); MEAN CORPUSCULAR VOLUME 94.6 fL (80-94); MONOCYTES # (AUTO) 0.4 K/uL (0.8-1.0); MONOCYTES % (AUTO) 8.9 % (1.7-9.3); NEUTROPHILS # (AUTO) 2.7 K/uL (1.8-7.7); NEUTROPHILS % (AUTO) 56.8 % (42.2-75.2); PLATELET COUNT (AUTO) 135 K/uL (140-450); RED BLOOD CELL COUNT(AUTO) 2.82 MIL/uL (4.20-6.10); WHITE BLOOD COUNT (AUTO) 4.8 K/uL (4.8-10.8)
--- NOTE | 2019-06-01 07:15 | NUR ---
Received bedside report from Dali. Pt in bed with technical training instructor for abd us. No signs of distress. Call light within reach.
[2019-06-01 08:00] VITALS: BP 161/98
[2019-06-01] MEDS: METOPROLOL 25 MG TAB PO SCH ×2 (08:41→20:32)
[2019-06-01] MEDS: amLODIPine 5 MG TAB PO SCH (08:41)
[2019-06-01] MEDS: ECOTRIN 81 MG TABEC PO SCH (08:41)
[2019-06-01] MEDS: LISINOPRIL 20 MG TAB PO SCH (08:42)
[2019-06-01] MEDS: POTASSIUM CHLORIDE 10 MEQ TABER PO SCH (08:42)
[2019-06-01] MEDS: hydrALAZINE 25 MG TAB PO SCH ×4 (08:42→20:33)
[2019-06-01] MEDS: FUROSEMIDE 40 MG/4 ML VIAL IVP SCH ×2 (08:43→20:31)
[2019-06-01] MEDS ORDERED: SPIRONOLACTONE 25 MG TAB PO SCH (09:00)
--- NOTE | 2019-06-01 11:29 | NUR ---
PT WAS SITTING BY THE SIDE OF HIS BED. NOTED WITH DISTENDED ABDOMEN. VERBALIZED RESPIRATION DIFFICULTY. GAVE HIM AN EXTRA PILLOW TO REPOSITION HIM WHEN LYING DOWN TO HIM WITH HIS BREATHING. NOT IN PAIN AT THIS TIME. WILL .
[2019-06-01 12:00] VITALS: BP 149/107
--- NOTE | 2019-06-01 14:02 | NUR ---
Obtained consent from pt for ultrasound-guided paracentesis, pt verbalized understanding & agreeable of procedure. Spoke to radio sportscaster re: order & states she will call back for ETA of radiologist to do procedure.
[2019-06-01 16:06] VITALS: BP 149/95
--- NOTE | 2019-06-01 16:15 | NUR ---
Pt sitting up at edge of bed, interacting appropriately with roommate's visitors. Pt denies any discomfort at this time, no SOB in room air. Call light within reach.
--- NOTE | 2019-06-01 19:20 | NUR ---
Report given to pm nurse Serena.
--- NOTE | 2019-06-01 19:25 | NUR ---
RECEIVED FROM AM RN IN BED AWAKE AND ALERT. ABLE TO VERBALIZE WELL IN [place] AND ROMANIAN. CALL LIGHT WITH IN REACH. NO SOB AT THIS TIME. HEPLOCKED . IVF SITE INTACT AND NO INFILTRATION. CARE PLANS FOR THE NIGHT DISCUSSED WITH HIM. PT. WATCHING TV. NO COMPLAINTS OF ANY PAIN AT THIS TIME.
[2019-06-01 19:36] VITALS: BP 142/96
[2019-06-01] MEDS: ATORVASTATIN 20 MG TAB PO SCH (20:31)
[2019-06-01] MEDS: risperiDONE 1 MG TAB PO SCH (20:32)
--- NOTE | 2019-06-01 21:14 | NUR ---
PT. STILL AWAKE AND WATCHING TV. ABLE TO VERBALIZE WELL IN [place] AND [place]. TELEMETRY MONITORING. DENIES ANY PAIN AT THIS TIME. ROM X 4. CLEAR SPEECH.
[2019-06-02 00:05] VITALS: BP 137/80
[2019-06-02] MEDS: ACETAMINOPHEN 325 MG TAB PO PRN (00:10)
[2019-06-02 04:53] VITALS: BP 148/80
--- NOTE | 2019-06-02 05:24 | NUR ---
SLEEPING WELL THIS SHIFT.
[2019-06-02] MEDS: PANTOPRAZOLE 40 MG TABEC PO SCH (05:53)
[2019-06-02 07:16] LABS: BASOPHILS % (AUTO) 0.7 % (0.0-2.0); EOSINOPHILS # (AUTO) 0.3 K/uL (0-0.4); EOSINOPHILS % (AUTO) 7.8 % (0.0-4.0); HEMATOCRIT 24.9 % (36-52); HEMOGLOBIN 8.3 g/dL (12.0-18.0); LYMPHOCYTES # (AUTO) 1.3 K/uL (2.0-11.5); MEAN CORPUSCULAR HEMOGLOBIN 32 pg (27-31); MEAN CORPUSCULAR HGB CONC 34 g/dL (33-37); MEAN CORPUSCULAR VOLUME 94.7 fL (80-94); MONOCYTES # (AUTO) 0.4 K/uL (0.8-1.0); MONOCYTES % (AUTO) 8.5 % (1.7-9.3); NEUTROPHILS # (AUTO) 2.3 K/uL (1.8-7.7); PLATELET COUNT (AUTO) 127 K/uL (140-450); RED BLOOD CELL COUNT(AUTO) 2.63 MIL/uL (4.20-6.10); RED CELL DISTRIBUTION WIDTH 16.1 % (11.6-13.7); WHITE BLOOD COUNT (AUTO) 4.3 K/uL (4.8-10.8)
[2019-06-02 07:47] LABS: PROTHROMBIN TIME 9.6 secs (10.8-13.4)
--- NOTE | 2019-06-02 08:00 | NUR ---
RECEIVED REPORT FROM FOSTER MACARIO AT BEDSIDE. PATIENT ALERT AWAKE ORIENTED X4, NOT IN ANY DISTRESS NOTED. INITIAL ASSESSMENT INITIATED. DR. CHAPMAN MADE ROUNDS AND DISCUSSED PLAN OF CARE. PATIENT IS SCHEDULE FOR US GUIDED PARACENTESIS TODAY.NEEDS ATTENDED, WILL CONTINUE TO MONITOR.
[2019-06-02 08:14] VITALS: BP 153/89
[2019-06-02 08:25] LABS: ALBUMIN 2.1 g/dL (3.4-5.0); ANION GAP 13.1 (8-16); CARBON DIOXIDE 26.2 mmol/L (21-32); CREATININE 1.2 mg/dL (0.7-1.3); MAGNESIUM 2.2 mg/dL (1.8-2.4); POTASSIUM 4.3 mmol/L (3.5-5.1); TOTAL BILIRUBIN 0.3 mg/dL (0.0-1.0)
[2019-06-02] MEDS ORDERED: SPIRONOLACTONE 25 MG TAB PO SCH (09:00)
--- NOTE | 2019-06-02 09:37 | NUR ---
PATIENT SITTING IN CHAIR, AAO, ABLE TO CONVERSED APPROPRIATELY, BP 159/99, PULSE 80.
[2019-06-02] MEDS: FUROSEMIDE 40 MG/4 ML VIAL IVP SCH (09:39)
[2019-06-02] MEDS: hydrALAZINE 25 MG TAB PO SCH ×2 (09:40→12:44)
[2019-06-02] MEDS: amLODIPine 5 MG TAB PO SCH (09:40)
[2019-06-02] MEDS: METOPROLOL 25 MG TAB PO SCH (09:41)
[2019-06-02] MEDS: LISINOPRIL 20 MG TAB PO SCH (09:42)
[2019-06-02] MEDS: POTASSIUM CHLORIDE 10 MEQ TABER PO SCH (09:43)
--- NOTE | 2019-06-02 11:55 | NUR ---
IR DR. MILES AT BEDSIDE TO DO US GUIDED PARACENTESIS, TIME OUT DONE. MONITOR VITAL SIGNS.
[2019-06-02 12:00] VITALS: BP 121/85
[2019-06-02] MEDS ORDERED: LIDOCAINE MPF 1% - 5 mL VIAL 5 ML ONE (12:00)
[2019-06-02] MEDS ORDERED: LIDOCAINE 1% 500 MG/50 ML VIAL INJ SCH (12:05)
--- NOTE | 2019-06-02 12:50 | NUR ---
US GUIDED PARACENTESIS DONE WITH 2.4L OUTPUT REMOVED AND SEND TO LAB.
[2019-06-02] MEDS ORDERED: HYDR-4420 PO (13:03)
[2019-06-02] MEDS ORDERED: SPIR25TA PO (13:03)
[2019-06-02] MEDS ORDERED: POTA10TE30 PO (13:03)
[2019-06-02] MEDS ORDERED: LISI-420 PO (13:03)
[2019-06-02] MEDS ORDERED: RIS1 PO (13:03)
[2019-06-02] MEDS ORDERED: METO25TA PO (13:03)
--- NOTE | 2019-06-02 14:00 | NUR ---
SEEN BY DR. RENEE WITH ORDER TO D/C HOME TODAY.
--- NOTE | 2019-06-02 14:48 | NUR ---
IV REMOVED AND TELEMETRY BOX. PATIENT ASSISTED TO THE SHOWER ROOM.. CALLED [facility], PATIENT SAID THAT SOMEBODY FROM THAT FACILITY WILL PICK HIM UP. WILL CONTINUE TO MONITOR.
[2019-06-02 16:00] VITALS: BP 150/89
--- NOTE | 2019-06-02 16:00 | NUR ---
NOTIFIED DR. WEIR REGARDING PDA FOLLOW UP. ALIGNMENT TECHNICIAN MADE AWARE ALSO ON PDA FOLLOW UP.
--- NOTE | 2019-06-02 16:05 | NUR ---
PATIENT DC TO [facility] ACCOMPANIED BY BISHNU FROM THE FACILITY. DISCHARGE INSTRUCTION AND PRESCRIPTION GIVEN AND VERBALIZED UNDERSTANDING. IN STABLE CONDITION.
[2019-06-02 23:02] LABS: LDH,BODY FLUID 77 U/L
== END 2019-06-02 16:20 | disposition home or self-care (01) | DRG 279 ==
LOC: MED 13:40 → MTU 17:23
PROVIDERS: ADMIT General Practice; ATTEND General Practice
PROC: 0W9G3ZZ Drainage of Peritoneal Cavity, Percutaneous Approach (ICD-10-PCS; principal; 2019-06-02)
DX: K72.90 Hepatic failure, unspecified without coma (principal); N17.0 Acute kidney failure with tubular necrosis; E43 Unspecified severe protein-calorie malnutrition; I50.43 Acute on chronic combined systolic (congestive) and diastolic (congestive) heart failure; E87.8 Other disorders of electrolyte and fluid balance, not elsewhere classified; I31.3 Pericardial effusion (noninflammatory); R18.8 Other ascites; E83.42 Hypomagnesemia; I11.0 Hypertensive heart disease with heart failure; F31.9 Bipolar disorder, unspecified; E87.6 Hypokalemia; F17.210 Nicotine dependence, cigarettes, uncomplicated; R31.9 Hematuria, unspecified; K21.9 Gastro-esophageal reflux disease without esophagitis; D63.8 Anemia in other chronic diseases classified elsewhere; Z68.25 Body mass index [BMI] 25.0-25.9, adult; I25.2 Old myocardial infarction; Z59.0 Homelessness; Z79.82 Long term (current) use of aspirin; Z79.899 Other long term (current) drug therapy
CPT/HCPCS: 36415; 49083; 71045; 76700; 76705; 76770; 80048; 80053; 80305; 81001; 82140; 82150; 82272; 82607; 82728; 82746; 83036; 83540; 83615; 83690; 83735; 83880; 84100; 84157; 84443; 84484; 85025; 85045; 85610; 85730; 87081; 88305; 88313; 88342; 93005; 93976; 96374; 99285; G0482; J0360; J1940; J2001; J3475; J3480; J7030; Q0092